=== PATIENT | female | born 1990 | race American Indian/Alaskan Native ===

== ENCOUNTER 2017-09-01 14:12 | Emergency (ER) | payer BC, SELFPAY ==
[2017-09-01] MEDS ORDERED: Naproxen 550 mg Tab PO STA (14:46)
[2017-09-01] MEDS ORDERED: Naproxen 550 mg Tab PO ONE (14:59)
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
[2017-09-01 16:16] VITALS: BP 107/69; PULSE 74; RESP 20; TEMP 98.5
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
[2017-09-01 16:58] VITALS: O2SAT 98
== END 2017-09-01 16:17 | disposition home or self-care (01) ==
LOC: C.ER 14:12
DX: S33.5XXA Sprain of ligaments of lumbar spine, initial encounter (principal); V49.59XA Passenger injured in collision with other motor vehicles in traffic accident, initial encounter; Y92.410 Unspecified street and highway as the place of occurrence of the external cause